=== PATIENT | female | born 1955 | race Caucasian/White ===

== ENCOUNTER 2016-07-28 01:42 | Emergency (ER) | payer OTHER ==
[2016-07-28 01:52] VITALS: TEMP 97.9
[2016-07-28] MEDS ORDERED: IBUPROFEN 600 MG TAB PO ONE (03:27)
[2016-07-28] MEDS ORDERED: ACETAMINOPHEN 500 MG TAB PO ONE (03:27)
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
[2016-07-28 05:38] VITALS: BP 127/89; PULSE 66; RESP 18; O2SAT 97
== END 2016-07-28 05:37 | disposition home or self-care (01) ==
DX: M54.2 Cervicalgia (principal); R07.9 Chest pain, unspecified; V43.52XA Car driver injured in collision with other type car in traffic accident, initial encounter